=== PATIENT | female | born 1970 | race Hispanic/Latino ===

== ENCOUNTER 2024-08-20 21:51 | Emergency (ER) | payer BC ==
[~2024-08-20] VITALS: Ht 160 cm; Wt 88.9 kg
[2024-08-20 21:54] VITALS: TEMP 98
[2024-08-20 22:19] LABS: BASOPHILS # (AUTO) 0.03 K/uL (0.00-0.20); BASOPHILS % (AUTO) 0.5 % (0.0-5.0); EOSINOPHILS # (AUTO) 0.11 K/uL (0.00-0.70); EOSINOPHILS % (AUTO) 1.8 % (0.0-8.0); HEMATOCRIT 28.8 % (36-48); IMMATURE GRANULOCYTE ABSOLUTE 0.02 K/uL (0-1); LYMPHOCYTES # (AUTO) 2.8 K/uL (1.0-4.8); MEAN CORPUSCULAR HGB CONC 31.6 g/dL (32.0-36.0); MONOCYTES # (AUTO) 0.4 K/uL (0.1-1.0); MONOCYTES % (AUTO) 6.2 % (3.0-13.0); NEUTROPHILS # (AUTO) 2.8 K/uL (1.8-7.7); NEUTROPHILS % (AUTO) 45.2 % (40.0-77.0); PLATELET COUNT (AUTO) 270 K/uL (130-400); RED BLOOD CELL COUNT(AUTO) 2.94 MIL/uL (4.00-5.50); RED CELL DISTRIBUTION WIDTH 15.6 % (11.0-15.5); WHITE BLOOD COUNT (AUTO) 6.2 K/uL (4.8-10.8)
[2024-08-20 22:29] LABS: CREATININE 0.9 mg/dL (0.5-1.0); POTASSIUM 3.9 mmol/L (3.5-5.1)
[2024-08-20 22:34] LABS: MAGNESIUM 1.8 mg/dL (1.80-2.40)
[2024-08-20 22:51] LABS: B-TYPE NATRIURETIC PEPTIDE 12 pg/mL (0-100)
[2024-08-20] MEDS: ketOROlac 15MG/ML VIAL (15MG/ML) IV ONE (23:02)
[2024-08-20] MEDS: ORPHENADRINE 60MG/2ML IVP ONE (23:02)
[2024-08-21] MEDS: ondanSETRON 4MG INJ IVP ONE (00:16)
[2024-08-21] MEDS: morPHINE 2 MG SYG IVP ONE (00:16)
[2024-08-21] MEDS: TRIAMCINOLONE ACETONIDE 40 MG/ML 1ML VIAL IM ONE (00:31)
--- NOTE | 2024-08-21 00:34 | ERN ---
General Chief Complaint: Chest Pain Stated Complaint: CHEST PAIN Time Seen by MD: 22:07 Time Seen by Midlevel: 22:07 Source: patient History of Present Illness Initial Comments The patient is a pleasant 53-year-old female presenting to the emergency department with left lateral chest wall pain. The patient states this pain has been intermittent in nature since July 03. She has already seen her primary care doctor multiple times for this issue. She is currently pending an MRI and possible referral to physical therapy. She has had multiple cardiac workups performed that have all been negative. Her symptoms are musculoskeletal in nature and usually worsened with movement or palpation. Denies any direct injury. She has been previously diagnosed with costochondritis. She is currently on meloxicam. Allergies: Coded Allergies: guaifenesin (Unverified Allergy, Unknown, 08/20/24) Past Medical History Past Medical History: Diabetes-Type II, High Cholesterol, Hypothyroid Past Surgical History: None ROS Dictation CONSTITUTIONAL: Negative except for HPI HEAD/FACE: Negative except for HPI EENT: Negative except for HPI RESPIRATORY: Negative except for HPI GASTROINTESTINAL/ABDOMINAL: Negative except for HPI GENITOURINARY: Negative except for HPI MUSCULOSKELETAL: Negative except for HPI INTEGUMENTARY: Negative except for HPI NEUROLOGICAL/PSYCH: Negative except for HPI HEMATOLOGIC/LYMPHATIC: Negative except for HPI All Systems Negative, Except as noted above. 13 point review of systems assessed and all negative except for above. Physical Exam Physical Exam Dictation Vital Signs reviewed General Appearance: Alert, oriented x 3, no acute distress, well developed, nourished. Head and Face: non-traumatic. Eyes: PERRL, pink conjunctivas, eyelid no trauma, anterior chamber with arcus senilis. Ears: Pinnas intact and no signs of trauma or erythema ear canals clear and no discharge TM no erythema Nose: No discharge, no bleeding. Oropharynx: Mouth normal, tongue pink, pharynx clear,no erythema, tonsils no exudates, no abscesses noted, mucous membrane moist Neck: Supple, non-tender, no thyromegaly, no masses, no JVD, no bruits Breast:Deferred Chest:No tenderness, no crepitus, no paradoxical movement, no retractions Lungs:Clear, well-ventilated, symmetric, no rales, no wheezing, no rhonchi, no stridor, good breath sounds bilaterally Heart: Regular rate, regular rhythm, no murmur, no gallops Vascular: no peripheral edema, Abdomen: Soft, positive bowel sounds, nondistended, no guarding, nontender, no rebound, no masses no hepatomegaly, no splenomegaly, no Yao's sign, no hernias. Rectal: Deferred Genital: Deferred Neurological: Normal speech, motor function intact, sensory function intact Musculoskeletal: Neck nontender, full range of motion, back nontender, full range of motion, Extremities: nontender, full range of motion Skin: Color pink, dry, no turgor, no rash, no lacerations, no abrasions, no contusions. Lymphatic: Deferred Results Laboratory and Microbiology Lab and Micro Result Laboratory Tests Test 08/20/24 22:10 White Blood Count 6.2 K/uL (4.8-10.8) Red Blood Count 2.94 MIL/uL (4.00-5.50) L Hemoglobin 9.1 g/dL (12.0-16.0) L Hematocrit 28.8 % (36-48) L Mean Corpuscular Volume 98.0 fL (79-99) Mean Corpuscular Hemoglobin 31.0 pg (27.0-33.0) Mean Corpuscular Hemoglobin Concent 31.6 g/dL (32.0-36.0) L Red Cell Distribution Width 15.6 % (11.0-15.5) H Platelet Count 270 K/uL (130-400) Mean Platelet Volume 9.6 fL (7.5-10.5) Immature Granulocyte % (Auto) 0.3 % (0-1) Neutrophils (%) (Auto) 45.2 % (40.0-77.0) Lymphocytes (%) (Auto) 46.0 % (21.0-51.0) Monocytes (%) (Auto) 6.2 % (3.0-13.0) Eosinophils (%) (Auto) 1.8 % (0.0-8.0) Basophils (%) (Auto) 0.5 % (0.0-5.0) Neutrophils # (Auto) 2.8 K/uL (1.8-7.7) Lymphocytes # (Auto) 2.8 K/uL (1.0-4.8) Monocytes # (Auto) 0.4 K/uL (0.1-1.0) Eosinophils # (Auto) 0.11 K/uL (0.00-0.70) Basophils # (Auto) 0.03 K/uL (0.00-0.20) Absolute Immature Granulocyte (auto 0.02 K/uL (0-1) Nucleated Red Blood Cells 0.0 % (0.0-0.19) Sodium Level 138 mmol/L (136-145) Potassium Level 3.9 mmol/L (3.5-5.1) Chloride Level 100 mmol/L (101-111) L Carbon Dioxide Level 27 mmol/L (21-32) Blood Urea Nitrogen 21 mg/dL (7-18) H Creatinine 0.9 mg/dL (0.5-1.0) Glomerular Filtration Rate Calc 76 mL/min (>90) Random Glucose 177 mg/dL (70-105) H Total Calcium 9.2 mg/dL (8.5-10.1) Magnesium Level 1.80 mg/dL (1.80-2.40) Total Creatine Kinase 60 U/L (21-232) Troponin I High Sensitivity 15 ng/L (4-50) B-Type Natriuretic Peptide 12 pg/mL (0-100) Labs Reviewed?: Yes MDM MDM: The patient is a pleasant 53-year-old female presenting to the emergency department with left lateral chest wall pain. The patient states this pain has been intermittent in nature since July 03. She has already seen her primary care doctor multiple times for this issue. She is currently pending an MRI and possible referral to physical therapy. She has had multiple cardiac workups performed that have all been negative. Her symptoms are musculoskeletal in nature and usually worsened with movement or palpation. Denies any direct injury. She has been previously diagnosed with costochondritis. She is currently on meloxicam. On physical examination the patient has reproducible chest wall tenderness. No obvious signs of external trauma. Cardiac workup was initiated which is unremarkable. Chest x-ray shows no evidence of pneumonia or pneumothorax. Based on clinical evaluation and history pain appears to be musculoskeletal in nature. Patient was given pain medication in the ER and muscle relaxers and reports feeling improved. She will need to follow up outpatient. Differential diagnosis: Costochondritis, ACS, pneumothorax, pneumonia There are no social concerns with this patient. Prescription drug management Prescriptions will include: None Medical management and examination interpretation discussions were had by me with other qualified healthcare professionals as indicated for the patient's care. ED Course Orders Procedure Category Date Status Time 12 Lead Ekg Tracing- EKG 08/20/24 Logged Technical 22:07 Cbc With Differential LAB 08/20/24 Complete 22:07 Basic Metabolic Panel LAB 08/20/24 Complete 22:07 B-Type Natriuretic LAB 08/20/24 Complete Peptide 22:07 Creatine Kinase, Total LAB 08/20/24 Complete 22:07 Magnesium LAB 08/20/24 Complete 22:07 Troponin I High LAB 08/20/24 Complete Sensitivity 22:07 Chest 1vw RAD 08/20/24 Taken 22:07 Drug Screen Urine LAB 08/20/24 Logged 22:07 Ketorolac PHA 08/20/24 Complete Tromethamine 15mg/Ml 23:00 Orphenadrine Citrate PHA 08/20/24 Complete (Norflex) 23:00 Triamcinolone Acet PHA 08/21/24 Verified 40mg/Ml 1ml (Kenalog 00:00 Morphine 2mg Syg PHA 08/21/24 Verified (Morphine 2mg Syg) 00:00 Ondansetron 4mg Inj PHA 08/21/24 Verified (Zofran 4mg Inj) 00:00 Current Medications Medications (Trade) Dose Ordered Sig/Arturo Route PRN Reason Start Time Stop Time Status Last Admin Dose Admin Ketorolac Tromethamine (toRADol) 15 mg ONCE ONCE IV 08/20/24 23:00 08/20/24 23:01 DC 08/20/24 23:02 Orphenadrine Citrate (Norflex) 60 mg ONCE ONCE IVP 08/20/24 23:00 08/20/24 23:01 DC 08/20/24 23:02 Vital Signs Date Time Temp Pulse Resp B/P (MAP) Pulse Ox O2 Delivery O2 Flow Rate FiO2 08/20/24 22:48 82 16 123/73 98 Room Air* 0 21 08/20/24 21:54 98.1 87 20 131/80 99 Room Air DX & DISP Disposition: Discharge Departure Impression: Primary Impression: Non-cardiac chest pain Additional Impressions: Musculoskeletal pain, Anemia Condition: Stable Referrals: DEVAN FORD MD (PCP) I have reviewed the case, and I agree with, Diagnosis and Plan I performed the substantive portion of the visit. I have reviewed and personally made and approve the management plan that is documented in the note by myself or the RIGOBERTO. I acknowledge for responsibility for the patient's management plan. JAGDISH MONTOYA August 21, 2024 00:34
[2024-08-21 01:08] VITALS: BP 128/79; PULSE 71; RESP 16; O2SAT 98
--- NOTE | 2024-08-21 08:50 | HMCIMG ---
PORTABLE CHEST RADIOGRAPH INDICATION: cp COMPARISON: None FINDINGS: Heart size is normal. The pulmonary vascularity and makayla appear normal. No abnormal pulmonary parenchymal opacity or consolidation identified. No significant pleural effusion noted. No pneumothorax detected. IMPRESSION: No radiographic evidence for any acute cardiopulmonary process.
--- NOTE | 2024-08-21 11:23 | EKG ---
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
== END 2024-08-21 01:27 | disposition home or self-care (01) ==
LOC: EDH 21:51
DX: R07.89 Other chest pain (principal); D64.9 Anemia, unspecified; E03.9 Hypothyroidism, unspecified; E11.9 Type 2 diabetes mellitus without complications; E78.00 Pure hypercholesterolemia, unspecified; Z88.8 Allergy status to other drugs, medicaments and biological substances
CPT/HCPCS: 99284; 96374; 71045; 96375 ×2; 82550; 83735; 84484; 80048; 83880; 85025; 36415; 93005; 96372; J1885; J2270; J2405; J3301; J2360